=== PATIENT | male | born 1960 | race Two or more races ===

== ENCOUNTER → 2016-10-21 | Outpatient (CLI) | payer BC ==
--- NOTE | 2016-10-21 17:08 | Diagnostic Imaging Report ---
Indication: COUGH Technique: 2 views of the chest Comparison: none. Findings: Lungs and pleural spaces are clear. Heart size is normal. Bones are unremarkable. Impression: No acute process
== END | disposition home or self-care (01) ==
LOC: RAD 16:25
DX: R05 Cough (principal); R06.02 Shortness of breath
CPT/HCPCS: 71020